=== PATIENT | male | born 1965 | race Caucasian/White ===

== ENCOUNTER 2021-03-12 21:00 | Emergency (ER) | payer SELFPAY ==
--- NOTE | 2021-03-12 21:49 | EDM.PDOC ---
ED HPI GENERAL MEDICAL PROBLEM - General Chief Complaint: Upper Extremity Injury/Pain Stated Complaint: DISLOCATED SHOULDER Time Seen by Provider: 03/12/21 21:00 Source of Information: Reports: Patient History Limitations: Reports: No Limitations - History of Present Illness INITIAL COMMENTS - FREE TEXT/NARRATIVE: pt states he was playing yard games with a frisbee when he attempted a diving catch with his left arm extended and his shoulder in full abduction, landing on his left shoulder. pt states left shoulder pain and diffuculty with ROM with deformity. he denies numbness or tingling to left hand, hitting his head, or any other injuries. Onset: Today Past Medical History - Past Health History Medical/Surgical History: Denies Medical/Surgical History Social & Family History - Tobacco Use Tobacco Use Status *Q: Never Tobacco User Second Hand Smoke Exposure: No - Caffeine Use Caffeine Use: Reports: Coffee - Alcohol Use Days Per Week of Alcohol Use: 3 Number of Drinks Per Day: 2 Total Drinks Per Week: 6 - Recreational Drug Use Recreational Drug Use: Yes Drug Use in Last 12 Months: Yes Other Recreational Drug Type: medical marijuana Recreational Drug Use Frequency: Daily Review of Systems - Review of Systems Review Of Systems: Comprehensive ROS is negative, except as noted in HPI. ED EXAM, GENERAL - Physical Exam Exam: See Below Exam Limited By: No Limitations General Appearance: Alert, WD/WN, Mild Distress, Moderate Distress Respiratory/Chest: No Respiratory Distress, No Accessory Muscle Use Cardiovascular: Normal Peripheral Pulses, Regular Rate, Rhythm, No Murmur Peripheral Pulses: 2+: Radial (L), Radial (R) Extremities: Other (left chest with skin tenting of lateral clavicle. deformity of left shoulder with active and passive ROM limited. CMS intact) Neurological: Alert, Oriented, Normal Cognition, Normal Gait Skin Exam: Warm, Dry, Intact ED TRAUMA EXTREMITY PROCEDURES - Joint Reduction Left Shoulder Sedation: Other (none) Pre-Procedure NV Status: Normal Post-Procedure NV Status: Normal Technique: Other (Davos) Number of Attempts: 2 Post-Reduction Imaging: Completely Reduced, Fracture Seen (clavicle fracture) Joint Reduction Complications: No Course - Vital Signs Last Recorded V/S: Last Vital Signs Temp 98.4 F 03/12/21 21:10 Pulse Resp 20 03/12/21 21:10 BP 156/100 H 03/12/21 21:10 Pulse Ox 100 03/12/21 21:10 - Orders/Labs/Meds Orders: Active Orders 24 hr Category Date Time Status Shoulder Comp Lt [CR] Stat Exams 03/12/21 21:07 Taken Departure - Departure Time of Disposition: 21:50 Disposition: Home, Self-Care 01 Condition: Fair Clinical Impression: Closed left clavicular fracture, Dislocation of shoulder, left, closed - Discharge Information *PRESCRIPTION DRUG MONITORING PROGRAM REVIEWED*: Not Applicable *COPY OF PRESCRIPTION DRUG MONITORING REPORT IN PATIENT [place]: Not Applicable Instructions: Clavicle Fracture, Bmad-ke-Pryl Forms: ED Department Discharge Care Plan Goals: Follow up with primary provider as soon as possible. Wear immobilizer as much as possible, may apply ice to injury. Take tylenol or ibuprofen for pain as needed. Sepsis Event Note (ED) - Evaluation Sepsis Screening Result: No Definite Risk - Focused Exam Vital Signs: Vital Signs Temp Resp BP Pulse Ox 03/12/21 21:10 98.4 F 20 156/100 H 100 - Problem List & Annotations (1) Closed left clavicular fracture SNOMED Code(s): 42713620 Code(s): S42.002A - FRACTURE OF UNSP PART OF LEFT CLAVICLE, INIT FOR CLOS FX Status: Acute Qualifiers: Encounter type: initial encounter Clavicle location: lateral end Fracture alignment: displaced Qualified Code(s): S42.032A - Displaced fracture of lateral end of left clavicle, initial encounter for closed fracture (2) Dislocation of shoulder, left, closed SNOMED Code(s): 397784664 Code(s): S43.005A - UNSPECIFIED DISLOCATION OF LEFT SHOULDER JOINT, INIT ENCNTR Status: Acute Qualifiers: Encounter type: initial encounter Qualified Code(s): S43.005A - Unspecified dislocation of left shoulder joint, initial encounter - Problem List Review Problem List Initiated/Reviewed/Updated: Yes - My Orders Last 24 Hours: My Active Orders 03/12/21 21:07 Shoulder Comp Lt [CR] Stat - Assessment/Plan Last 24 Hours: My Active Orders 03/12/21 21:07 Shoulder Comp Lt [CR] Stat Assessment:: assessment: left shoulder dislocation reduced with Davos technique left clavicle fracture: noted skin tenting but no open fracture. highly encouraged shoulder immobilizer and RT ER if skin erodes and bone punctures through, pain worsens or signs of infection occur. pt agreeable to plan of care and fit with left shoulder immobilizer. also recommended to follow up in PCP clinic [facility] next week as he lives in [facility] area. pt also agreeable to this. activity and work restrictions also discussed and pt hesitantly agreed after discussion.
--- NOTE | 2021-03-13 10:36 | CR ---
DATE OF SERVICE: 03/12/21 CLINICAL DATA: possible dislocation LEFT SHOULDER: There is a displaced oblique fracture through the distal clavicle with 1 cm superior displacement of the medial fragment with respect to the lateral fragment. There is also a faint lucency through the mid clavicle which may represent a nondisplaced fracture. No other acute abnormalities. No lytic or blastic bone lesions. [id number] [facility]
== END 2021-03-12 21:30 | disposition home or self-care (01) ==
LOC: LB.ED 21:00
DX: S42.032A Displaced fracture of lateral end of left clavicle, initial encounter for closed fracture (principal); S43.005A Unspecified dislocation of left shoulder joint, initial encounter; W01.0XXA Fall on same level from slipping, tripping and stumbling without subsequent striking against object, initial encounter
CPT/HCPCS: 23650; 73030-LT; 99283-25